=== PATIENT | female | born 1950 | race Caucasian/White ===

== ENCOUNTER 2019-04-07 15:00 | Outpatient (CLI) | payer MEDICARE, SELFPAY ==
--- NOTE | ~2019-04-07 | CT_ITS ---
EXAMINATION: CT sinus wo con DATE: 04/07/2019 15:40 INDICATION: Facial/sinus trauma and pain TECHNIQUE: Computed tomography (CT) of the paranasal sinuses was performed without intravenous contra st. The dose-length product (DLP) was 295.03 mGy-cm. Iterative reconstruction was used. COMPARISON: None FINDINGS: There is normal development and pneumatization of the paranasal sinuses. There is mild muco beth thickening in the medial aspect of the left sphenoid sinus. The frontal, sphenoid, ethmoid, and m axillary sinuses are otherwise clear. The bilateral ostiomeatal complexes are patent. Visualized soft tissues are unremarkable. There appear to be nondisplaced bilateral nasal bone fractures. IMPRESSION: 1. Likely nondisplaced bilateral nasal bone fractures. 2. Minimal left sphenoid sinus disease. Reviewed, dictated and finalized at location B. PASSER
== END 2019-04-07 15:01 | disposition home or self-care (01) ==
LOC: ANHIMG 15:04
PROVIDERS: PCP Family Medicine; Visit Provider Obstetrics & Gynecology
DX: S09.92XA Unspecified injury of nose, initial encounter (principal)
CPT/HCPCS: 70486

== ENCOUNTER 2020-03-14 15:01 | Outpatient (CLI) | payer MEDICARE, SELFPAY ==
--- NOTE | ~2020-03-14 | MM_ITS ---
EXAMINATION: MM screening [facility] BI w savanah HISTORY: Screening TECHNIQUE: Craniocaudal and mediolateral oblique 3-D tomosynthesis images were obtained and synthetic 2-D images were generated. CAD analysis was submitted and interpreted. COMPARISON: Comparison to multiple prior studies sequentially, with oldest reviewed study dated 10/16. BREAST PARENCHYMAL COMPOSITION: There are scattered areas of fibroglandular density. FINDINGS: There is no evidence of suspicious mass, calcification, or architectural distortion to sugg est malignancy in either breast. There has been no suspicious interval change. IMPRESSION: 1. No mammographic evidence of malignancy. 2. Recommend routine screening mammography in one year. BI-RADS Category 1: Negative Reviewed, dictated and finalized at location A.
== END 2020-03-14 15:02 | disposition home or self-care (01) ==
LOC: ANHIMG 15:04
PROVIDERS: PCP Family Medicine; Visit Provider Family Medicine
DX: Z12.31 Encounter for screening mammogram for malignant neoplasm of breast (principal)
CPT/HCPCS: 77063; 77067

== ENCOUNTER 2021-03-30 16:21 | Outpatient (CLI) | payer MEDICARE, SELFPAY ==
--- NOTE | ~2021-03-30 | MM_ITS ---
EXAMINATION: MM screening [facility] BI w savanah HISTORY: Screening mammogram TECHNIQUE: Craniocaudal and mediolateral oblique 3-D tomosynthesis images were obtained and synthetic 2-D images were generated. CAD analysis was submitted and interpreted. COMPARISON: 03/14/2020, 03/12/2019, bilateral digital screening mammogram examinations BREAST PARENCHYMAL COMPOSITION: There are scattered areas of fibroglandular density. FINDINGS: Stable mildly nodular fibroglandular stroma and occasional benign calcifications are again noted. There is no evidence of suspicious mass, calcification, or architectural distortion to suggest malignancy in either breast. There has been no suspicious interval change. IMPRESSION: 1. No mammographic evidence of malignancy. 2. Recommend routine screening mammography in one year. BI-RADS Category 2: Benign finding(s). Reviewed, dictated and finalized at location A.
== END 2021-03-30 16:22 | disposition home or self-care (01) ==
PROVIDERS: PCP Family Medicine; Visit Provider Family Medicine
DX: Z12.31 Encounter for screening mammogram for malignant neoplasm of breast (principal)
CPT/HCPCS: 77063; 77067

== ENCOUNTER 2022-01-03 13:53 | Outpatient (CLI) | payer MEDICARE, SELFPAY | END 2022-01-03 13:54 | disposition home or self-care (01) | LOC: ANHAUDIO 13:55 | PROVIDERS: PCP Family Medicine; Visit Provider Family Medicine | DX: H90.3 Sensorineural hearing loss, bilateral (principal) | CPT/HCPCS: 92557; 92567 ==

== ENCOUNTER 2022-05-04 10:06 | Outpatient (CLI) | payer MEDICARE, SELFPAY ==
--- NOTE | ~2022-05-04 | MM_ITS ---
EXAMINATION: MM screening [facility] BI w savanah HISTORY: Screening mammogram TECHNIQUE: Craniocaudal and mediolateral oblique 3-D tomosynthesis images were obtained and synthetic 2-D images were generated. CAD analysis was submitted and interpreted. COMPARISON: 03/30/2021, 03/14/2020, 03/12/2019 BREAST PARENCHYMAL COMPOSITION: There are scattered areas of fibroglandular density. FINDINGS: No suspicious mass, calcification, or architectural distortion are identified in either landon ast to suggest malignancy. There has been no suspicious interval change. IMPRESSION: 1. No mammographic evidence of malignancy. 2. Recommend routine screening mammography in one year. BI-RADS Category 1: Negative Reviewed, dictated and finalized at location A.
== END 2022-05-04 10:07 | disposition home or self-care (01) ==
LOC: ANHIMG 10:07
PROVIDERS: PCP Family Medicine; Visit Provider Family Medicine
DX: Z12.31 Encounter for screening mammogram for malignant neoplasm of breast (principal)
CPT/HCPCS: 77063; 77067

== ENCOUNTER 2022-10-01 07:19 | Day surgery (SDC) | payer MEDICARE, SELFPAY ==
[2022-07-25 08:20] VITALS: BMI 36.2
[2022-09-12 09:42] VITALS: BMI 36.3
--- NOTE | 2022-09-26 14:38 | PM.HPGS ---
History of Present Illness History of Present Illness Consent: Risks, benefits, and alternatives have been discussed and questions answered. Patient agrees to proceed with procedure. Chief complaint: Diarrhea and Rectal Bleed Narrative: Terra Burns is a 71 year old female referred for colon cancer screening. Her last examination was 10 years ago and was negative except for hemorrhoids. She has seen blood her stools now and has loose stools. Review of Systems Review of Systems: All systems reviewed & are unremarkable except as noted in HPI and below PMFSH Past Medical History Medical History Anxiety Cataract Depression Essential hypertension Hyperlipidemia Obesity (BMI 30-39.9) Rectal bleeding Surgical History Surgical History H/O: hysterectomy Family History Family History Other Family history of lung cancer Family history of mental disorder Social History Social History Smoking status: Never smoker Second hand tobacco smoke exposure: No Alcohol intake: never Substance use: never Substance use type: does not use Living arrangements: with family Occupation/Education: retired Gender identity (if verbalized by the patient): Female Sexual Orientation (if Verbalized by the Patient): Straight or Heterosexual Spiritual care concerns: No Meds Home Medications and Allergies Home Medications Medication Instructions Recorded Confirmed Type acetaminophen 500 mg tablet 500 mg PO Q6H PRN Pain 05/25/19 10/01/22 History (Tylenol Extra Strength) trazodone 100 mg tablet 100 mg PO QHS 08/23/20 10/01/22 History clobetasol 0.05 % scalp solution 1 applic topical DAILY #25 mL 09/05/20 10/01/22 Rx escitalopram oxalate 20 mg tablet 20 mg PO DAILY 04/07/21 10/01/22 History aripiprazole 20 mg tablet (Abilify) 20 mg PO HS 08/25/21 10/01/22 History buspirone 10 mg tablet 15 mg PO TID 12/15/21 10/01/22 History calcium carbonate 600 mg calcium 600 mg PO DAILY 03/08/22 10/01/22 History (1,500 mg) tablet (Calcium) fexofenadine 180 mg tablet 180 mg PO DAILY 03/08/22 10/01/22 History (Kate Allergy) naproxen 500 mg tablet 500 mg PO BID #60 tabs 07/09/22 10/01/22 Rx colestipol 1 gram tablet (Colestid) 1 g PO BID 09/12/22 10/01/22 History losartan 50 mg tablet 50 mg PO HS 09/12/22 10/01/22 History multivit with minerals-iron 18 1 tablet PO DAILY 09/12/22 10/01/22 History mg-folic ac 400 mcg-vit K 25 mcg tablet (Adults Multivitamin) vitamin B12 500 mcg-folic acid 400 1 tablet PO DAILY 09/12/22 10/01/22 History mcg tablet Allergies Allergy/AdvReac Type Severity Reaction Status Date / Time No Known Allergies Allergy Verified 10/01/22 08:05 Exam Const: General: alert Orientation/consciousness: patient oriented x3 Resp: Auscultation: clear to auscultation bilaterally Cardio: Rhythm: regular rhythm GI: GI Palp: Yes Soft to palpation and No Tenderness to palpation present (GI) Neuro: General: patient oriented x3 Assessment and Plan Assessment and plan (1) Colon cancer screening: Code(s): Z12.11 - Encounter for screening for malignant neoplasm of colon Status: Acute Assessment and Plan: Colonoscopy with possible biopsy or polypectomy or cautery or injection of substances.
[2022-10-01 07:45] VITALS: BP 145/100; PULSE 82; RESP 20; TEMP 36.9; O2SAT 97
--- NOTE | 2022-10-01 07:51 | WPDANESEPPF ---
Anes - Initial Pre Proc Eval Procedure: Operation Date: 10/01/22 09:00 Proposed Procedures p Diagnostic Colonoscopy - Gamaliel Ortega MD Date/Time: 10/01/22 07:51 Surgeon: Gamaliel Ortega MD Pre Op Diagnosis: Diarrhea and Rectal Bleed Patient Data Age: 71 Gender: F Height: 1.57 m Weight: 90 kg Allergies Allergy/AdvReac Type Severity Reaction Status Date / Time No Known Allergies Allergy Verified 09/12/22 09:42 Home Medications Medication Instructions Recorded Confirmed Type acetaminophen 500 mg tablet 500 mg PO Q6H PRN Pain 05/25/19 09/12/22 History (Tylenol Extra Strength) trazodone 100 mg tablet 100 mg PO QHS 08/23/20 09/12/22 History clobetasol 0.05 % scalp solution 1 applic topical DAILY #25 mL 09/05/20 09/12/22 Rx escitalopram oxalate 20 mg tablet 20 mg PO DAILY 04/07/21 09/12/22 History aripiprazole 20 mg tablet (Abilify) 20 mg PO HS 08/25/21 09/12/22 History buspirone 10 mg tablet 15 mg PO TID 12/15/21 09/12/22 History calcium carbonate 600 mg calcium 600 mg PO DAILY 03/08/22 09/12/22 History (1,500 mg) tablet (Calcium) fexofenadine 180 mg tablet 180 mg PO DAILY 03/08/22 09/12/22 History (Kate Allergy) naproxen 500 mg tablet 500 mg PO BID #60 tabs 07/09/22 09/12/22 Rx colestipol 1 gram tablet (Colestid) 1 g PO BID 09/12/22 09/12/22 History losartan 50 mg tablet 50 mg PO HS 09/12/22 09/12/22 History multivit with minerals-iron 18 1 tablet PO DAILY 09/12/22 09/12/22 History mg-folic ac 400 mcg-vit K 25 mcg tablet (Adults Multivitamin) vitamin B12 500 mcg-folic acid 400 1 tablet PO DAILY 09/12/22 09/12/22 History mcg tablet Patient hx anesthesia problems: post op nausea/vomiting Family hx anesthesia problems: none Results Review: All pre-operative results and documents have been reviewed as part of the pre-operative evaluation. [facility] Past Medical History Medical History Anxiety Cataract Depression Essential hypertension Hyperlipidemia Obesity (BMI 30-39.9) Rectal bleeding Surgical History Surgical History H/O: hysterectomy Family History Family History Other Family history of lung cancer Family history of mental disorder Social History Social History Smoking status: Never smoker Second hand tobacco smoke exposure: No Alcohol intake: never Substance use: never Substance use type: does not use Living arrangements: with family Occupation/Education: retired Gender identity (if verbalized by the patient): Female Sexual Orientation (if Verbalized by the Patient): Straight or Heterosexual Spiritual care concerns: No Anes - Eval Final PreProcedure Day of Procedure 10/01/22 07:51 Patient weight: obese Heart: regular rate and rhythm Lungs: clear to auscultation Neurological: alert and oriented Last oral intake: >/= 8 hours ASA classification: III Emergent: no Anesthetic plan: proceed Anesthesia type and monitoring: general GIVS and standard monitoring Results Review: All pre-operative results and documents have been reviewed as part of the pre-operative evaluation. Informed Consent: The patient's anesthetic plan and its attendant risks and benefits were discussed with the patient/family/POA. Questions were solicited and answers provided to the satisfaction of the patient/family/POA.
[2022-10-01] MEDS: LACTATED RINGERS 1,000 ML 150 ML IV CONT (08:12)
[2022-10-01 09:10] VITALS: BP 101/55; PULSE 81; RESP 16; O2SAT 99
[2022-10-01 09:20] VITALS: BP 105/67; PULSE 81; RESP 16; O2SAT 98
--- NOTE | 2022-10-01 09:24 | SUR.PHASEII ---
PT AWAKE AND ALERT. DENIES PAIN. REFUSING PO FLUIDS AT THIS TIME.
[2022-10-01 09:30] VITALS: BP 121/69; PULSE 70; RESP 16; O2SAT 100
--- NOTE | 2022-10-01 09:39 | WPDANESPN ---
Anes - Prog Note Post-Op Date/Time: 10/01/22 09:39 Cardiovascular status: normal Respiratory status: normal Airway patency: baseline Mental status: baseline Post-Op hydration status: normal Vital Signs: Last Vital Signs Temp 36.9 C 10/01/22 07:45 Pulse 81 10/01/22 09:20 Resp 16 10/01/22 09:20 BP 105/67 10/01/22 09:20 Pulse Ox 98 10/01/22 09:20 O2 Del Method Room Air 10/01/22 09:20 Pain Score (VAS): 0 I/O: Intake & Output 09/30/22 10/01/22 10/01/22 23:59 07:59 15:59 Intake Total 300 Balance 300 Patient Feedback: Patient satisfied with anesthetic care.
== END 2022-10-01 09:45 | disposition home or self-care (01) ==
PROVIDERS: PCP Family Medicine; Visit Provider Internal Medicine Gastroenterology
PROC: 0DJD8ZZ Inspection of Lower Intestinal Tract, Via Natural or Artificial Opening Endoscopic (ICD-10-PCS; CPT 45378; principal; 2022-10-01 09:00)
DX: Z12.11 Encounter for screening for malignant neoplasm of colon (principal)
CPT/HCPCS: 45380

== ENCOUNTER 2022-10-01 09:00 | Outpatient (NON) | payer MEDICARE, SELFPAY | END 2022-10-01 09:01 | disposition home or self-care (01) | LOC: ANHLAB 10-02 07:47 | PROVIDERS: PCP Family Medicine; Visit Provider Internal Medicine Gastroenterology | DX: Z12.11 Encounter for screening for malignant neoplasm of colon (principal) | CPT/HCPCS: 88305 ==

== ENCOUNTER 2023-05-07 09:44 | Outpatient (CLI) | payer MEDICARE, SELFPAY ==
--- NOTE | ~2023-05-07 | DEXA_ITS ---
Bone Density Report Name: MARII SOTO Age: 72 Sex: Female Ethnicity: White Date of : 1950 Indication: postmenopausal; screening for osteoporosis; parental hip fracture; height loss; hysterectomy; Referring Provider: PATRICE MONAE Study: Bone densitometry was performed. Exam Date: May 07, 2023 Accession number: [id number] Bone Density: Region BMD T-score Z-score Classification AP Spine(L1-L4) 1.508 4.2 6.4 Normal Femoral Neck (Left) 0.697 -1.4 0.6 Osteopenia Total Hip (Left) 0.950 0.1 1.7 Normal Femoral Neck (Right) 0.665 -1.7 0.3 Osteopenia Total Hip (Right) 0.927 -0.1 1.5 Normal Total Hip Mean 0.939 0.0 1.6 Normal World Health Organization criteria for BMD impression classify patients as: Normal (T-score at or above -1.0), Osteopenia (T-score between -1.0 and -2.5), or Osteoporosis (T-score at or below -2.5). 10-year Fracture Risk(1): Major Osteoporotic Fracture 15% Hip Fracture 5.0% Reported Risk Factors: [place] (), Neck BMD=0.665, BMI=37.8, parental fracture (1) FRAX(R) Version 3.08. Fracture probability calculated for an untreated patient. Fracture probability may be lower if the patient has received treatment. Clinical Information Provided by Patient: Parent has had a hip fracture Has the following medical conditions: Hysterectomy Patient maximum height was 62 Menopause Age: 34 No regular weight bearing exercise Onset of menses at age 12 Number of children 2 Impression: The patient has low bone mass, based on the Right Femoral Neck T-score. The patient has an estimated ten-year risk of hip fracture of 5% and an estimated ten-year risk of major fracture of 15%, based on the WHO FRAX algorithm. The patient has risk factors, including: parental hip fracture. Discussion: BONE DENSITY IS LOW AT ONE OR MORE SKELETAL SITES. THE PATIENT'S BMD AND CLINICAL RISK FACTORS CONTRIBUTE TO THIS PATIENT'S INCREASED RISK OF FRACTURE. This patient's lowest T-score is low at one or more skeletal sites. It meets the World Health Organization's (WHO) criteria for ?low bone mass? (T-score between -1.0 and -2.5). The patient's 10-year risk of hip fracture as calculated by FRAX exceeds the threshold where pharmacological therapy is recommended by the National Osteoporosis Foundation (NOF). However, all treatment decisions require clinical judgment and consideration of individual patient factors, including patient preferences, comorbidities, previous drug use, risk factors not captured in the FRAX model (e.g., frailty, falls, vitamin D deficiency, increased bone turnover, interval significant decline in bone density) and possible under or overestimation of fracture risk by FRAX. The patient should follow a healthful lifestyle (good nutrition with adequate calcium
--- NOTE | ~2023-05-07 | MM_ITS ---
EXAMINATION: MM screening [facility] BI w savanah HISTORY: Screening mammogram TECHNIQUE: Craniocaudal and mediolateral oblique 3-D tomosynthesis images were obtained and synthetic 2-D images were generated. CAD analysis was submitted and interpreted. COMPARISON: 05/04/2022, 03/30/2021, 03/14/2020 BREAST PARENCHYMAL COMPOSITION: There are scattered areas of fibroglandular density. FINDINGS: No suspicious mass, calcification, or architectural distortion are identified in either landon ast to suggest malignancy. There has been no suspicious interval change. IMPRESSION: 1. No mammographic evidence of malignancy. 2. Recommend routine screening mammography in one year. BI-RADS Category 1: Negative Reviewed, dictated and finalized at location A. NER AND DYER
== END 2023-05-07 09:45 | disposition home or self-care (01) ==
PROVIDERS: PCP Family Medicine; Visit Provider Physician Assistant
DX: Z12.31 Encounter for screening mammogram for malignant neoplasm of breast (principal); Z78.0 Asymptomatic menopausal state; M85.89 Other specified disorders of bone density and structure, multiple sites
CPT/HCPCS: 77063; 77067; 77080

== ENCOUNTER 2024-07-24 13:34 | Outpatient (CLI) | payer MEDICARE, SELFPAY ==
--- NOTE | ~2024-07-24 | US_ITS ---
EXAMINATION: US renal BI DATE: 07/24/2024 13:50 INDICATION: Other specified abnormal findings of blood chemistry. TECHNIQUE: Multiple ultrasound grayscale images of the kidneys were obtained. COMPARISON: None. FINDINGS: The right kidney measures 8.5 x 5.3 x 6.7 cm. The left kidney measures 9.4 x 5.6 x 3.8 cm. The kidney s demonstrate normal parenchymal echogenicity. There is no hydronephrosis. The bladder is normal. IMPRESSION: 1. Mild atrophy of right kidney. No hydronephrosis. Reviewed, dictated and finalized at location A. ICAL BIOSTATISTICS DIRECTOR
== END 2024-07-24 13:35 | disposition home or self-care (01) ==
LOC: MICIMG 13:34
PROVIDERS: PCP Family Medicine; Visit Provider Internal Medicine Nephrology
DX: R79.89 Other specified abnormal findings of blood chemistry (principal); I12.9 Hypertensive chronic kidney disease with stage 1 through stage 4 chronic kidney disease, or unspecified chronic kidney disease; N18.31 Chronic kidney disease, stage 3a
CPT/HCPCS: 76775

== ENCOUNTER 2024-09-18 11:32 | Outpatient (CLI) | payer MEDICARE, SELFPAY ==
--- OUTSIDE RECORDS SUMMARY | 2024-09-18 11:36 | XMS_ITS | Clinical Summary ---
Author Organization [facility] Address [address] [place] [address] Care Team Providers Care Evp Marketing Name Role Phone Unavailable Primary Care Provider Unavailabl e Source Comments [facility],non-owned Affiliates and Associated Physician Practices is amultiple site organization consisting of ambulatory clinics and hospital sitesin [place], [place], [place] and [place]. This disclosure is being madepursuant to the Care Everywhere program and may not contain all information available regarding this patient. Last updated 18.[facility] [employer] Social History Tobacco Use Types Packs/Day Years Used Date Smoking Tobacco: Never Assessed Comments Unknown Sex and Gender Information Value Date Recorded Sex Assigned at Not on file Legal Sex Female 2:08 PM CDT Gender Identity Not on file Sexual Orientation Not on file Plan of Treatment Health Maintenance Due Date Last Done Comments BONE DENSITY TESTING 1950 COLOGUARD (AGES 45-75) - COL ON CA SCREENING 1950 COLON MONITORING 1950 COLONOSCOPY - COLON CA SCREENING 1950 CT COLONOGRAPHY - COLON CA SCREENING 1950 Colorectal Cancer Screening 1950 FIT - COLON CA SCREENING 1950 FLEX SIG - COLON CA SCREENING 1950 LIPID TESTING 1950 MAMMOGRAM 1950 HEPATITIS C SCREENING 11/14/1968 DTAP/TDAP/TD VACCINES (1 - Tdap) 1969 PNEUMOCOCCAL VACCINE 50+ (1 of 1 - PCV) 2000 ZOSTER VACCINE (1 of 2) 2000 COVID-19 VACCINE ( - 2023-2 5 season) 2024 DEPRESSION SCREENING 06/03/2024 MEDICARE AWV CALENDAR YEAR 2024 INFLUENZA VACCINE (Season Ended) 2025 Respiratory Syncytial Virus (RSV) Vaccine Pt: or over 60 yrs (1 - 1-dose 75+ series) 2025 HEPATITIS B VACCINE Aged Out No longe r eligible based on patient's age to complete this topic HIB VACCINE Aged Out No longer eligi ble based on patient's age to complete this topic HPV VACCINE Aged Out No longer eligi ble based on patient's age to complete this topic MENINGOCOCCAL (Group B) VACC INE SHARED DECISION-MAKING Aged Out No longer eligibl e based on patient's age to complete this topic MENINGOCOCCAL GROUPS A/C/Y/W VACCINE Aged Out No longer eligible b ased on patient's age to complete this topic Insurance MEDICARE [facility] MANAGED MEDICARE ADV [facility] MANAGED MEDICARE ADV
--- OUTSIDE RECORDS SUMMARY | 2024-09-18 11:36 | XMS_ITS | Encounter Summary ---
Author Organization [facility] Address [address] [place] [address] Care Team Providers Care Distribution Agent Name Role Phone Unavailable Primary Care Provider Unavailabl e Encounter Details Date Type Department Care Team (Late st Contact Info) Description 03/03/2024 Lab Requisition [facility] - DermPath Lab [address] [place] [address] Dina Lovett DO [address] [place] [address] Social History Tobacco Use Types Packs/Day Years Used Date Smoking Tobacco: Never Assessed Comments Unknown Sex and Gender Information Value Date Recorded Sex Assigned at Not on file Legal Sex Female 2:08 PM CDT Gender Identity Not on file Sexual Orientation Not on file documented as of this encounter Plan of Treatment Not on file documented as of this encounter Procedures Procedure Name Priority Date/Time Associated Diagnosis Comments DERMATOPATHOLOGY Routine 03/03/2024 11:3 6 AM CDT documented in this encounter Results * DERMATOPATHOLOGY (03/03/2024 11:36 AM CDT) Case Report Dermatopathology Report Case: [id number] Authorizing Provider: Dina Lovett DO Collected: 03/03/2024 11:36 AM Ordering Location: [facility] - Received: 03/03/2024 03:43 PM DermPath Lab Pathologist: Cate Preston MD Specimen: Skin, left lower abdomen 6:23 PM [facility] Addendum 1 The clinical images are reviewed. Immunohistochemical stains are preformed to rule out a more concerning tumor. MART-1/Melan A highlights the lack of an intraepidermal component. PRAME (preferentially expressed antigen of melanoma) shows 0+ staining of the melanocytes. Mib1 (Ki-67), a proliferation marker, highlights very rare melanocytes. P16 shows a mosaic pattern. HMB45 does not highlight the melanocytes. Multiple additional deeper sections were obtained and reviewed. 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 The nevus is widely present at the base of the specimen. This case was also reviewed by Dr. Jenn Foy who agrees. As this specimen is not completely sampled, these findings may not be personal banking representative of the entire lesion. Clinicopathologic correlation is recommended. 6:23 PM [facility] DERMATOPATHOLOGY [facility]OR[facility] Addendum electronically signed by Cate Preston MD on 04/09/2024 at 6:23 PM Final Diagnosis Specimen A. SKIN, left lower abdomen: INTRADERMAL MELANOCYTIC NEVUS (D22.5) POST-INFLAMMATORY PIGMENT ALTERATION (L81.9) 6:23 PM [facility] Clinical History R/O MM 6:23 PM [facility] Gross Description Specimen A: Received is one formalin filled container labeled with the patient's name and designated left lower abdomen. The specimen consists of a shave biopsy measuring 12x9x1 mm. Jar 0. 6:23 PM [facility]ERMATOPATHOLOGY [facility] Microscopic Description Specimen A. SKIN, left lower abdomen: There are nests of cytologically bland melanocytes within the dermis that mature with depth. Sections show abundant melanin within melanophages around the superficial vascular plexus. 6:23 PM [facility]ATH[facility]Y [facility] Disclaimer An external and internal positive and negative controls are appropriate for the histochemical, immunohistochemical and immunofluorescence stain(s) in this case (if any), except where stated explicitly. The performance characteristics of the stain(s) cited in this report were developed and its performance characteristic determined by the Dermatopathology Laboratory at [facility], directed by Dr. Effie Preston. These tests need not be, and therefore are not, approved by the [place] Food and Drug Administration. The tests are used for clinical purposes. Billing Codes Specimen Charges Stain Charges 23944 1 6:23 PM [facility] Embedded Images 4 6:23 PM [facility] Pathology/Cytolo gy TISSUE SPECIMEN FROM SKIN / Unknown 03/03/2024 11:36 AM CDT 03/03/2024 3:43 PM CDT us Dina Lovett DO LAB - PATHOLOGY/CYTOLOGY ORDERABLES Edited Result - Final DERMATOPATHOLOGY LABORATORY [facility] - Department of Dermatology [facility] [address] [place] [address], [address] [phone] documented in this encounter Visit Diagnoses Not on filedocumented in this encounter
--- OUTSIDE RECORDS SUMMARY | 2024-09-18 11:36 | XMS_ITS | Patient Health Record ---
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 Name Role Phone Lorraine Griffin MD Primary Care Provider Valdez Scruggs Unavailable [phone] Migration, Provider Unavailable Unavailable Allergies No Known Allergies Reason For Referral No Information Medications Medication SIG (Take, Route, Frequency, Duration) Notes Start Date End Date Status Colestipol HCl 1 GM Oral 05/16/2023 Active Clobetasol Propionate 0.05 % External 05/16/2023 Active Naproxen 500 MG Oral 05/16/2023 Act christy Triamcinolone Acetonide 0.50% External 05/16/2023 Active busPIRone HCl 15 MG 1 tablet Oral three times a day for 90 days Active Escitalopram Oxalate 20 MG TAKE 1 TABLET BY MOUTH ONCE DAILY for 90 Active Escitalopram Oxalate 20 MG 1 tablet Oral Once a day for 90 days Active oxyBUTYnin Chloride 5 MG Oral 05/16/2023 Active ARIPiprazole 2 MG 1 tablet Oral Once a day for 90 days Active Skyrizi *Reorder from [employer] for eRx and Interaction Alerts* 05/16/2023 Active traZODone HCl 100 MG 1 tablet as needed at bedtime Oral Once a day for 90 days Active Losartan Potassium 50 MG Oral 05/16/2023 Active traZODone HCl 100 MG 1 tablet at bedtime Oral Once a day for 90 days As needed Active CALCIUM-600 600 MG ( CALCIUM CARBONATE 1,500 MG) TABLET *Reorder from [employer] for eRx and Interaction Alerts* 05/16/2023 Active busPIRone HCl 5 MG 1 tablet Oral three times a day for 90 days take with 15mg tablet Active Immunizations Vaccine Route Administration Date Status Comme nts Influenza virus vaccine, quadrivalent (IIV4), split virus, 0.25 mL dosage Unknown 05/06/2020 Administered Influenza, high-dose seasona l, quadrivalent, preservative free >65 yrs Unknown 05/06/2020 Administered Pfizer [employer] Covid-19 Vac cine 2nd dose Unknown 07/22/2020 Administered Pfizer [employer] Covid-19 Vac cine 2nd dose Unknown 08/15/2020 Administered Pfizer [employer] Covid-19 Vac cine 2nd dose Unknown 04/25/2021 Administered Pfizer [employer] Covid-19 Vac cine 2nd dose Unknown 09/22/2021 Administered Pfizer [employer] Covid-19 Vac cine 2nd dose Unknown 04/13/2022 Administered Pneumococcal conjugate PCV 13 Unknown 05/06/2020 Admini stered Tdap Unknown 08/02/2020 Administered Social History Tobacco Use: Social History Observation Description Date Details (start date - stop date) Never Smoker NA - NA Sex Assigned At : Social History Observation Description Sex Assigned At Female Tobacco Control (Standard) Question Answer Notes Tobacco use: Nonsmoker Problems Problem Type SNOMED Code ICD Code Onset Dates Problem Status W/U Status Risk Notes Problem Major depression, single episode, in complete remission (23304111) Major depressive disorder, single episode, in full remission (F32.5) 3 Active confirmed Problem Generalized anxiety disorder (88608071) Generalized anxiety disorder (F41.1) 3 Active confirmed Problem Insomnia (687471003) Other insomnia (G47.09) 3 Active confirmed Encounters Encounter Location Date Provider Diagnosis [facility] [address] [facility] [address] [address] 11/15/2023 Valdez Kennedy Generalized anxiety disorder F41.1 ; Other insomnia G47.09 and Major depressive disorder, single episode, in full remission F32.5 [facility] [address] [facility] [address] [address] 05/18/2024 Valdez Kennedy Generalized anxiety disorder F41.1 ; Other insomnia G47.09 and Major depressive disorder, single episode, in full remission F32.5 [email or web address] [facility] [address] [facility] [address] [place] [address] 10/19/2023 Provider [facility] [address] [facility] [address] [address] 10/20/2023 Provider Migration [facility] [place] [id number] [facility] [address] [address] 01/10/2024 Valdez Kennedy Generalized anxiety disorder F41.1 ; Other insomnia G47.09 and Major depressive disorder, single episode, in full remission F32.5 [facility] [employer] [facility] [address] [facility] [address] [address] 01/23/2024 Valdez Kennedy Other insomnia G47.09 ; Generalized anxiety disorder F41.1 and Major depressive disorder, single episode, in full remission F32.5 [facility] [employer] [facility], [employer] [address] [facility] [address] [address] 01/23/2024 Valdez Kennedy Major depressive disorder, single episode, in full remission F32.5 and Generalized anxiety disorder F41.1 [facility] [employer] [facility] [address] [facility] [address] [address] 03/19/2024 Valdez Kennedy Assessments Encounter Date Diagnosis (ICD Code) Assessment Notes Treatment Notes Treatment Clinical Notes Section Notes 11/15/2023 Generalized anxiety disorder (ICD-10 - F41.1) cont buspirone 20mg tid she is stable no new orders 11/15/2023 Other insomnia (ICD-10 - G47.09) she is stable no new orders 01/10/2024 Generalized anxiety disorder (ICD-10 - F41.1) 01/23/2024 Other insomnia (ICD-10 - G47.09) 01/23/2024 Major depressive disorder, single episode, in full remission (ICD-10 - F32.5) 05/18/2024 Generalized anxiety disorder (ICD-10 - F41.1) cont buspirone 20mg tid she is stable no new orders 05/18/2024 Other insomnia (ICD-10 - G47.09) she is stable no new orders 01/23/2024 Generalized anxiety disorder (ICD-10 - F41.1) 01/23/2024 Generalized anxiety disorder (ICD-10 - F41.1) 01/10/2024 Other insomnia (ICD-10 - G47.09) 11/15/2023 Major depressive disorder, single episode, in full remission (ICD-10 - F32.5) cont abilify 2mg daily, escitalopram 20mg daily she failed GDR of abilify in the past she is stable no new orders 01/23/2024 Major depressive disorder, single episode, in full remission (ICD-10 - F32.5) 01/10/2024 Major depressive disorder, single episode, in full remission (ICD-10 - F32.5) 05/18/2024 Major depressive disorder, single episode, in full remission (ICD-10 - F32.5) cont abilify 2mg daily, escitalopram 20mg daily she failed GDR of abilify in the past she is stable no new orders Plan Of Treatment Next Appt Details Provider Name:Valdez bartlett, 11/16/2024 11:15:00 AM, [address] [facility] [address], [facility] [address], [place], [address], Insurance Providers Payer Name Payer Address Payer Phone Subscriber Number Group Number Insured Name Patient Relationship to Insured Coverage Start Date Coverage End Date [employer] Medicare Replacement/ Advantage - [place]mo [address] [address] [place] [address] [id number] MARII SOTO Self - patient is the insured Medical (General) History Surgical History Surgery Date(Month/Year) Cataract surgery (05822) Hysterectomy (01393) Hysterectomy (10300) 09/01/1984 Cataract surgery (65695) 02/01/2003
[2024-09-18 12:57] LABS: Toxigenic C. Diff NEGATIVE (NEGATIVE)
== END 2024-09-18 11:33 | disposition home or self-care (01) ==
LOC: ANHLAB 11:34
PROVIDERS: PCP Family Medicine; Visit Provider Nurse Practitioner
DX: R19.7 Diarrhea, unspecified (principal)
CPT/HCPCS: 87045; 87269; 87427; 87449; 87493